=== PATIENT | male | born 1960 | race Caucasian/White ===

== ENCOUNTER 2021-04-06 05:22 | Emergency (ER) | payer OTHER ==
[2021-04-06 05:53] VITALS: BP 151/98; PULSE 119; TEMP 99.1; BMI 31.6
[2021-04-06] MEDS ORDERED: KETOROLAC TROMETHAMINE 30 MG/1 ML VIAL IM ONE (05:53)
[2021-04-06] MEDS ORDERED: LIDOCAINE 5% TOPICAL PATCH TP ONE (05:53)
[2021-04-06] MEDS ORDERED: METHOCARBAMOL 500 MG TABLET PO ONE (05:54)
[2021-04-06] MEDS ORDERED: KETOROLAC TROMETHAMINE 30 MG/1 ML VIAL ONE (06:02)
[2021-04-06] MEDS ORDERED: LIDOCAINE 5% TOPICAL PATCH ONE (06:02)
[2021-04-06] MEDS ORDERED: METHOCARBAMOL 500 MG TABLET ONE (06:02)
[2021-04-06] MEDS ORDERED: DEXAMETHASONE 4 MG TABLET (FP) PO ONE (06:43)
[2021-04-06] MEDS ORDERED: DEXAMETHASONE 4 MG TABLET (FP) ONE (07:18)
[2021-04-06] MEDS ORDERED: LIDOCAINE PATCH REMOVAL MC SCH (22:00)
== END 2021-04-06 07:25 | disposition home or self-care (01) ==
LOC: JER 05:22
PROC: 3E0233Z Introduction of Anti-inflammatory into Muscle, Percutaneous Approach (ICD-10-PCS; principal; 2021-04-06)
DX: M54.50 Low back pain, unspecified (principal)
CPT/HCPCS: 99284-25

== ENCOUNTER → 2022-04-17 | Day surgery (SDC) | payer OTHER | END | disposition home or self-care (01) | LOC: JRADIR 09:07 | PROVIDERS: ATTEND Internal Medicine Endocrinology, Diabetes & Metabolism | PROC: 0G9G3ZX Drainage of Left Thyroid Gland Lobe, Percutaneous Approach, Diagnostic (ICD-10-PCS; principal; 2022-04-17) | DX: E04.1 Nontoxic single thyroid nodule (principal) | CPT/HCPCS: 10005; 76942; 88173; 88305-TC ==